=== PATIENT | female | born 1960 | race Caucasian/White ===

== ENCOUNTER → 2019-02-01 | Outpatient (CLI) | payer BC ==
[~2019-02-01] MED LIST: ACET325 PO; ALBU90OI INH; Benicar PO; CYAN100; Daily Multiple1 EACH; HARVONI 90-4001 EACH PO; IBUP800 PO; LEVSOD88 PO; ONDA8 PO; PROC10 PO; TRAM50 PO; TUMS ULTRA ST1177 MG; Vitamin D400 UNI1
[2019-02-03 14:07] LABS: HPV 16 Negative (Negative); HPV 18 Negative (Negative); HPV OTHER HR TYPES Negative (Negative)
== END ==
LOC: LAB SHORT 11:52 → LAB 11:52
PROVIDERS: Nurse Practitioner Family
DX: Z01.419 Encounter for gynecological examination (general) (routine) without abnormal findings (principal)
CPT/HCPCS: 87070; 87106; 87205; 87624; G0145

== ENCOUNTER → 2023-02-25 | Outpatient (CLI) | payer BC ==
[2023-02-27 15:07] LABS: HPV 16 Negative (Negative); HPV 18 Negative (Negative); HPV OTHER HR TYPES Negative (Negative)
== END | disposition home or self-care (01) ==
LOC: LAB 10:11 → LAB SHORT 10:11
PROVIDERS: Advanced Practice Midwife
DX: Z01.419 Encounter for gynecological examination (general) (routine) without abnormal findings (principal)
CPT/HCPCS: 87624; G0145

== ENCOUNTER 2024-03-09 06:38 | Day surgery (SDC) | payer BC ==
[2024-03-09] VITALS (14 sets, daily range): BP systolic 120–183; BP diastolic 68–97
[~2024-03-09] VITALS: Ht 175.3 cm; Wt 60.0 kg
[~2024-03-09 06:38] MED LIST changes: +CALCITONIN-SAL3.7 M1; +NS 500 ML IV SCH
[2024-03-09] MEDS ORDERED: propofoL 20 ML IV ONE (07:05)
[2024-03-09] MEDS ORDERED: Ondansetron HCl 2 MG / ML 2ML Vial ONE (07:30)
--- NOTE | 2024-03-09 07:33 | NUR ---
History, Chart, Medications and Allergies reviewed before start of procedure.LUNGS CLEAR, PRE OP TEACHING DONE
[2024-03-09] MEDS ORDERED: Midazolam HCl 1MG / ML 2ML Vial ONE (07:34)
--- NOTE | 2024-03-09 07:41 | NUR ---
03/09/24 0741 Ant Bradley CONFIRMED AND REVIEWED H&P, MEDCICATIONS, ALLERGIES, MEDICAL HISTORY, RESPIRATORY HISTORY, VITAL SIGNS, 3-LEAD EKG, CONSENTS, AND PHYSICIAN ORDERS. PATIENT CONFIRMS NPO STATUS AND AGREES WITH SCHEDULED PROCEDURE. MONITOR INTACT WITH CONTINUOUS PULSE OXIMETRY, CAPNOGRAPHY, 3-LEAD EKG, INTERMITTENT BP. SUPPLEMENTAL O2 TO BE TITRATED THROUGHOUT PROCEDURE TO MAINTAIN O2 SATURATION ABOVE 90%. PATIENT DETERMINED TO BE ASA APPROPRIATE FOR PROPOFOL SEDATION PRIOR TO START OF PROCEDURE BY DR. FUNG
--- NOTE | 2024-03-09 08:01 | NUR ---
REPORT RECEIVED FROM LEWIS VILCHIS. VSS. PT RESTING QUIETLY. PT DENIES PAIN, NAUSEA OR OTHER DISCOMFORTS.
== END 2024-03-09 08:20 | disposition home or self-care (01) ==
LOC: ORSCMMR 06:38 → ORD 07:30 → ORSCMMR 08:20
PROVIDERS: Internal Medicine Gastroenterology
PROC: 0DJD8ZZ Inspection of Lower Intestinal Tract, Via Natural or Artificial Opening Endoscopic (ICD-10-PCS; principal; 2024-03-09 07:30)
DX: Z12.11 Encounter for screening for malignant neoplasm of colon (principal); R19.5 Other fecal abnormalities; J44.9 Chronic obstructive pulmonary disease, unspecified; E03.9 Hypothyroidism, unspecified; F17.210 Nicotine dependence, cigarettes, uncomplicated; Z86.19 Personal history of other infectious and parasitic diseases; Z79.899 Other long term (current) drug therapy
CPT/HCPCS: 88305; J2250; J2405; J2704; J7040

== ENCOUNTER 2025-02-10 10:18 | Day surgery (SDC) | payer BC ==
[~2025-02-10] VITALS: Ht 175.3 cm; Wt 60.3 kg
[~2025-02-10 10:18] MED LIST changes: +Lidocaine HCl 2% 10 ML SDA ONE; -NS 500 ML IV SCH
[2025-02-10] MEDS ORDERED: CeFAZolin Sodium 2,000 MG VIAL ONE (10:46)
[2025-02-10] MEDS ORDERED: [UNRECOGNIZED DRUG - OTHER] (10:53)
[2025-02-10] MEDS ORDERED: MAGNESIUM (10:54)
[2025-02-10] MEDS ORDERED: Lidocaine HCl 2% 10 ML SDA ONE (11:04)
[2025-02-10] MEDS ORDERED: FentaNYL Citrate 50 MCG/ML 2 ML Injection ONE (11:27)
[2025-02-10] MEDS ORDERED: Midazolam HCl 1MG / ML 2ML Vial ONE (11:27)
[2025-02-10] MEDS ORDERED: Ondansetron HCl 2 MG / ML 2ML Vial ONE (11:51)
[2025-02-10] MEDS ORDERED: Metoclopramide HCl 5MG / ML 2ML Vial ONE (12:08)
--- NOTE | 2025-02-10 15:06 | NUR ---
02/10/25 1506 Mike Cote PT'S O2 INITIALLY MAINTAINED 92-95% IN SDU WITH BREIF DROPS LOW 90%. PT WAS ABLE TO QUICKLY, SPONTANEOUSLY RETURN HER O2 TO >92%. AFTER MOVING TO RECL[facility]ER AT APPROXAMATELY 1240, SHE MAINTAINED O2 >95%. PT NAUSEAS AND VOMITING THROUGHOUT STAY IN SDU. PT STATED SHE ALWAYS IS NAUSEAS AFTER SURGERY. PT RECIEVED ZOFRAN IMMEDIATELY PRIOR TO ARRIVING IN SDU. SHE WAS GIVEN SIPS OF STARRY AND ALCOHOL SWABS. SHE WAS ALSO FURTHER MEDICATED WITH IV REGLAN AND DROPERIDOL (SEE EMAR) , PER DR. VILLALTA ORDERS. PT WAS INSISTENT SHE WANTED TO GO HOME [place] FOLLOWING DROPERIDOL ADMINISTRATION. SHE REPORTED HEADACHE BUT DENIED OTHER PAIN, CP, WEAKNESS, DIZZINESS, SOB, AND OTHER SYMPTOMS. NO FACIAL DROOP OBSERVED. PT STATED SHE ALWAYS HAS HEADACHE AFTER SURGERY. DR. VILLALTA WAS CONSULTED SEVERAL TIMES REGARDING NAUSEA, VOMITING, HYPERTENSION, HEADACHE, AND OTHER VITALS. HE APPROVED D/C, IF PT REFUSED TREATMENT FOR HYPERTENSION. PT REFUSED HYPERTENSION TREATMENT. PT STATED SHE HAS HYPERTENSION AT BASELINE. SHE WAS INSTRUCTED TO FOLLOW UP WITH PCP IMMEDIATELY REGARDING HYPERTENSION. SHE WAS INSTRUCTED IN SIGNS AND SYMPTOMS OF HYPERTENSION/STROKE AND TOLD TO SEEK EMERGENCY MEDICAL CARE IF SHE EXPERIENCES ANY SUCH SYMPTOMS. PT VOIDED IMMEDIATELY PRIOR TO D/C, AFTER MONITORS REMOVED. PT AND MOTHER EXPRESSED GRATITUDE FOR CARE AT D/C.
[2025-02-10 15:16] VITALS: BP 170/85
== END 2025-02-10 14:15 | disposition home or self-care (01) ==
LOC: ORSCSDS 10:18
PROVIDERS: Podiatrist Foot & Ankle Surgery
PROC: 0QBR0ZZ Excision of Left Toe Phalanx, Open Approach (ICD-10-PCS; principal; 2025-02-10 12:00)
PROC: 0QBQ0ZZ Excision of Right Toe Phalanx, Open Approach (ICD-10-PCS; principal; 2025-02-10 12:00)
DX: M89.8X7 Other specified disorders of bone, ankle and foot (principal); F17.210 Nicotine dependence, cigarettes, uncomplicated; E07.9 Disorder of thyroid, unspecified; Z79.899 Other long term (current) drug therapy
CPT/HCPCS: J0690; J1790; J2003; J2250; J2405; J2704; J2765; J3010; J7120

== ENCOUNTER → 2025-04-19 | Outpatient (CLI) | payer BC ==
[~2025-04-19] MED LIST changes: -Lidocaine HCl 2% 10 ML SDA ONE; +MAGNESIUM; +[UNRECOGNIZED DRUG - OTHER]
== END | disposition home or self-care (01) ==
LOC: LAB SHORT 09:49 → LAB 09:49
DX: R07.9 Chest pain, unspecified (principal)
CPT/HCPCS: 84484